=== PATIENT | female | born 1960 | race Caucasian/White ===

== ENCOUNTER → 2020-06-28 | Outpatient (CLI) | payer MEDICARE, OTHER ==
[~2020-06-28] MED LIST: ASPIR 8181 MG PO; ATORVASTATIN CA40 MG PO; BRILINTA 90 MG90 MG PO; CARDIZEM30 MG PO; DOXYCYCLINE HY100 M2 PO; FLEXERIL 10 MG10 MG PO; FLONASE 0.05% N16 GM; GABAPENTIN800 MG PO; GENTAMICIN 0.33.5 GM OS; HYDROCODON-ACE1 EAC6 PO; IMDUR ER TAB 3030 MG PO; NAPROSYN500 MG PO; OMEPRAZOLE20 M1 PO; RIZATRIPTAN10 M1 PO; SYMBICORT 160-1 INHA INH; TESSALON PERLE100 MG PO; VENTOLIN HFA 66.7 GM INH; ZANTAC 150 MG150 MG PO; ZOFRAN ODT 4 MG4 MG SL
== END ==
LOC: KOH-I 14:17
DX: F17.210 Nicotine dependence, cigarettes, uncomplicated (principal); R91.1 Solitary pulmonary nodule
CPT/HCPCS: 71271

== ENCOUNTER 2020-10-11 22:25 | Emergency (ER) | payer MEDICARE, OTHER | END 2020-10-12 01:25 | disposition home or self-care (01) | LOC: ER1 22:25 | DX: S39.012A Strain of muscle, fascia and tendon of lower back, initial encounter (principal); S40.812A Abrasion of left upper arm, initial encounter; S80.812A Abrasion, left lower leg, initial encounter; J44.9 Chronic obstructive pulmonary disease, unspecified; I10 Essential (primary) hypertension; I25.10 Atherosclerotic heart disease of native coronary artery without angina pectoris; F17.200 Nicotine dependence, unspecified, uncomplicated; W19.XXXA Unspecified fall, initial encounter; Y92.009 Unspecified place in unspecified non-institutional (private) residence as the place of occurrence of the external cause | CPT/HCPCS: 72131; 99283 ==

== ENCOUNTER → 2021-03-21 | Outpatient (CLI) | payer MEDICARE, OTHER | LOC: HEART 5 14:06 | DX: I73.9 Peripheral vascular disease, unspecified (principal); M79.606 Pain in leg, unspecified ==

== ENCOUNTER → 2021-10-25 | Outpatient (CLI) | payer MEDICARE, OTHER | LOC: CT 14:57 | DX: F17.210 Nicotine dependence, cigarettes, uncomplicated (principal); R91.1 Solitary pulmonary nodule | CPT/HCPCS: 71271 ==